=== PATIENT | female | born 1985 | race Two or more races ===

== ENCOUNTER 2017-05-20 00:02 | Emergency (ER) | payer MEDICAID ==
[~2017-05-20] VITALS: Ht 175.3 cm; Wt 99.8 kg
[2017-05-20 00:34] VITALS: BP 123/64
== END 2017-05-20 02:08 | disposition home or self-care (01) ==
LOC: ER 00:06
DX: Z48.00 Encounter for change or removal of nonsurgical wound dressing (principal); F17.200 Nicotine dependence, unspecified, uncomplicated
CPT/HCPCS: 99281; A4606; Z7610; Z7502

== ENCOUNTER 2023-09-18 01:04 | Emergency (ER) | payer MEDICAID, OTHER ==
[~2023-09-18] VITALS: Ht 172.7 cm; Wt 82.6 kg
[2023-09-18] MEDS ORDERED: AMOX/CLAVULANATE 875 MG TABLET ONE (01:38)
[2023-09-18] MEDS ORDERED: TDAP [DIPH/PERTUSSIS/TET] 0.5 ML VIAL IM ONE ×2 (01:39→02:00)
[2023-09-18] MEDS ORDERED: AMOX/CLAVULANATE 875 MG TABLET PO ONE (02:00)
[2023-09-18] MEDS ORDERED: AMOX-430 PO (02:48)
[2023-09-18 02:57] VITALS: BP 124/61; TEMP 98; O2SAT 99
== END 2023-09-18 02:57 | disposition home or self-care (01) ==
LOC: ER 01:06
DX: F41.9 Anxiety disorder, unspecified (principal); F17.200 Nicotine dependence, unspecified, uncomplicated
CPT/HCPCS: 90715

== ENCOUNTER 2023-10-01 16:05 | Emergency (ER) | payer MEDICAID ==
[~2023-10-01] VITALS: Ht 172.7 cm; Wt 82.6 kg
[~2023-10-01 16:05] MED LIST: AMOX-430 PO
[2023-10-01 16:29] VITALS: BP 122/62; TEMP 98
[2023-10-01 17:53] VITALS: O2SAT 97
== END 2023-10-01 17:53 | disposition home or self-care (01) ==
LOC: ER 16:11
DX: S91.031D Puncture wound without foreign body, right ankle, subsequent encounter (principal); F41.9 Anxiety disorder, unspecified; F17.200 Nicotine dependence, unspecified, uncomplicated; Z79.899 Other long term (current) drug therapy; W54.0XXD Bitten by dog, subsequent encounter